=== PATIENT | female | born 1990 | race Native Hawaiian/Other Pacific Islander ===

== ENCOUNTER 2017-01-30 13:37 | Emergency (ER) | payer SELFPAY ==
[2017-01-30 13:57] VITALS: BP 105/67; PULSE 70; RESP 16; TEMP 98.3; O2SAT 100
[2017-01-30] MEDS ORDERED: RABIES VACCINE 2.5 Units PDR IM ONE (14:02)
--- NOTE | 2017-01-30 14:44 | ED PDOC ---
HPI: Skin/Bite Injury Time Seen by Provider: 01/30/17 14:01 Chief Complaint (Nursing): Bite Chief Complaint (Provider): Bite History Per: Patient History/Exam Limitations: no limitations Additional Complaint(s): Hardik Fay is a 26 year old female who presents to the ED for her final rabies vaccination after a dog bite, onset 1 month ago. Patient reports she was bitten by her personal pet on her left index finger. She was traveling in [place] where she received her first rabies shot and rabies immunoglobulin. Also traveled to [place] where she received her 2nd and 3rd injection of the vaccine. Denies allergy or swelling in response to the vaccine. PMD: non [facility] provider - Animal Bite Description Of The Animal: Family Pet Animal Appears: Unknown Past Medical History Reviewed: Historical Data, Nursing Documentation, Vital Signs Vital Signs: Last Vital Signs Temp 98.3 F 01/30/17 13:54 Pulse 70 01/30/17 13:54 Resp 16 01/30/17 13:54 BP 105/67 01/30/17 13:54 Pulse Ox 100 01/30/17 14:53 - Surgical History Surgical History: No Surg Hx - Family History Family History: States: Unknown Family Hx - Social History Current smoker - smoking cessation education provided: No Alcohol: None Drugs: Denies - Home Medications Home Medications: Ambulatory Orders Medication Instructions Recorded No Known Home Med 01/30/17 - Allergies Allergies/Adverse Reactions: Allergies Allergy/AdvReac Type Severity Reaction Status Date / Time No Known Allergies Allergy Verified 01/30/17 13:54 Review of Systems ROS Statement: Except As Marked, All Systems Reviewed And Found Negative Physical Exam - Reviewed Nursing Documentation Reviewed: Yes Vital Signs Reviewed: Yes - Physical Exam Appears: Positive for: Well, Non-toxic, No Acute Distress Head Exam: Positive for: ATRAUMATIC, NORMOCEPHALIC Skin: Positive for: Normal Color, Warm, Dry Extremity: Positive for: Other (small puncture wound to left index finger). Negative for: Swelling - ECG O2 Sat by Pulse Oximetry: 100 (RA) Pulse Ox Interpretation: Normal Medical Decision Making Medical Decision Making: Time: 14:02 Plan: --Rabavert Vaccine Inj 2.5 units IM once Scribe Attestation: Documented by Allyssa Long, acting as a scribe for Karolina Lopez PA-C Provider Scribe Attestation: All medical record entries made by the Scribe were at my direction and personally dictated by me. I have reviewed the chart and agree that the record accurately reflects my personal performance of the history, physical exam, medical decision making, and the department course for this patient. I have also personally directed, reviewed, and agree with the discharge instructions and disposition. Disposition - Clinical Impression Clinical Impression: Need for immunization against rabies - Patient ED Disposition Is Patient to be Admitted: No Counseled Patient/Family Regarding: Need For Followup - Disposition Disposition: Routine/Home Disposition Time: 15:10 Condition: STABLE Instructions: Rabies (ED) Forms: [employer] ([employer])
== END 2017-01-30 15:34 | disposition home or self-care (01) ==
LOC: H.ER 13:37
DX: Z29.14 Encounter for prophylactic rabies immune globulin (principal)